=== PATIENT | male | born 1950 | race Caucasian/White ===

== ENCOUNTER 2019-02-12 21:21 | Inpatient (IN) | payer MEDICARE ==
[~2019-02-12] VITALS: Ht 165.1 cm; Wt 54.7 kg
[~2019-02-12 21:21] MED LIST: BENAZEPRIL; DILANTIN; GLIPIZIDE; METOPROLOL; SIMVASTATIN
[2019-02-12] MEDS ORDERED: MORPHINE SULFATE 4 MG/ML CPJ (NOT FOR IM USE) IV STA (22:08)
[2019-02-12] MEDS ORDERED: ONDANSETRON HCL 4MG/2ML INJ IV STA (22:08)
[2019-02-12] MEDS ORDERED: LORAZEPAM 2MG/ML CPJ IV ONE (22:15)
[2019-02-12 23:57] LABS: HEMATOCRIT. 33.5 % (42.0-52.0); HEMOGLOBIN. 11.3 g/dL (14.0-18.0); MEAN CORPUSCULAR HEMOGLOBIN 32.4 pg (28.0-32.0); MEAN CORPUSCULAR VOLUME 95.9 fL (80.0-94.0); MEAN PLATELET VOLUME 7.3 fl (7.4-10.4); PLATELET 336 x1000/uL (130-400); RED BLOOD CELL COUNT 3.49 mill/uL (4.7-6.1); RED CELL DISTRIBUTION WIDTH 14.2 % (11.6-14.6)
[2019-02-13] MEDS ORDERED: ASPIRIN 81MG TABLET PO ONE
[2019-02-13 00:09] LABS: CHLORIDE 103 mEq/L (98-107)
[2019-02-13 00:13] LABS: ETHANOL BLOOD < 10 mg/dL
[2019-02-13 00:18] LABS: PARTIAL THROMBOPLASTIN TIME 22.6 sec (23.4-31.0); PROTHROMBIN TIME 10.1 sec (9.6-11.0)
[2019-02-13 00:39] LABS: CLARITY URINE CLEAR (CLEAR); COLOR URINE YELLOW (YELLOW); KETONES URINE NEGATIVE (NEGATIVE); LEUKOCYTE ESTERASE URINE NEGATIVE (NEGATIVE); NITRITE URINE NEGATIVE (NEGATIVE); OCCULT BLOOD URINE 1+ (NEGATIVE); PROTEIN URINE 3+ (NEGATIVE); SPECIFIC GRAVITY URINE 1.011 (1.005-1.030); UROBILINOGEN URINE 0.2 E.U./dL (0.2-1.0)
[2019-02-13 01:06] LABS: *AMPHETAMINES SCREEN URINE NEGATIVE (NEGATIVE); *BARBITURATES SCREEN URINE NEGATIVE (NEGATIVE); *BENZODIAZEPINES SCREEN URINE NEGATIVE (NEGATIVE); *COCAINE SCREEN URINE NEGATIVE (NEGATIVE); METHADONE URINE SCREEN NEGATIVE (NEGATIVE); OPIATES URINE SCREEN PRESUMTIVE POSITIVE (NEGATIVE)
[2019-02-13 01:07] LABS: CANNABINOID URINE SCREEN NEGATIVE (NEGATIVE); PHENCYCLIDINE URINE SCREEN NEGATIVE (NEGATIVE)
[2019-02-13 01:39] LABS: PLATELET ESTIMATE NORMAL
[2019-02-13 08:30] VITALS: BP 150/55
[2019-02-13 08:55] VITALS: BP 150/55
[2019-02-13] MEDS ORDERED: PENT400T16 PO (09:17)
[2019-02-13] MEDS ORDERED: LISI-186 PO (09:17)
[2019-02-13] MEDS ORDERED: TAMS-11 PO (09:17)
[2019-02-13] MEDS ORDERED: PHEN100C12 PO (09:17)
[2019-02-13] MEDS ORDERED: ASPI-1393 PO (09:17)
[2019-02-13] MEDS ORDERED: DOCU-138 PO (09:17)
[2019-02-13] MEDS ORDERED: DONE5TAB7 PO (09:17)
[2019-02-13] MEDS ORDERED: SERT50TA12 PO (09:17)
[2019-02-13] MEDS ORDERED: METO-539 PO (09:18)
[2019-02-13] MEDS ORDERED: ACETAMINOPHEN 325MG TABLET PO PRN (09:45)
[2019-02-13] MEDS ORDERED: ONDANSETRON 4MG/5ML UDC PO NR (11:00)
[2019-02-13 12:00] VITALS: BP 123/60
[2019-02-13] MEDS: ENOXAPARIN 40MG/0.4ML SYR SUBCUT SCH (12:23)
[2019-02-13 16:00] VITALS: BP 103/56
[2019-02-13] MEDS ORDERED: CLONIDINE 0.1MG TABLET PO PRN (16:45)
[2019-02-13 20:00] VITALS: BP 117/48
[2019-02-13] MEDS ORDERED: PHENYTOIN SODIUM EXTENDED 100MG CAPSULE PO SCH (21:00)
[2019-02-14] VITALS: BP 120/52
[2019-02-14 04:00] VITALS: BP 123/60
[2019-02-14 06:20] LABS: BASOPHILS % 0.8 % (0.0-2.0); EOSINOPHILS % 5.2 % (0.0-5.0); HEMATOCRIT. 34.5 % (42.0-52.0); HEMOGLOBIN. 11.5 g/dL (14.0-18.0); LYMPHOCYTES % 24.8 % (20.0-50.0); MEAN CORPUSCULAR HEMOGLOBIN 31.7 pg (28.0-32.0); MEAN CORPUSCULAR VOLUME 95.6 fL (80.0-94.0); MEAN PLATELET VOLUME 7.4 fl (7.4-10.4); MONOCYTES % 12.2 % (2.0-8.0); PLATELET 366 x1000/uL (130-400); RED BLOOD CELL COUNT 3.61 mill/uL (4.7-6.1); RED CELL DISTRIBUTION WIDTH 14.2 % (11.6-14.6)
[2019-02-14 08:00] VITALS: BP 138/54
[2019-02-14] MEDS ORDERED: PHENYTOIN SODIUM 700 MG in SODIUM CHLORIDE 0.9% 100 ML IV NR (08:30)
[2019-02-14] MEDS ORDERED: CLOPIDOGREL 75MG TABLET PO SCH (09:00)
[2019-02-14] MEDS: ENOXAPARIN 40MG/0.4ML SYR SUBCUT SCH (09:12)
[2019-02-14 12:00] VITALS: BP 120/52
[2019-02-14 14:34] LABS: T4 FREE 0.95 ng/dL (0.76-1.46)
[2019-02-14 14:50] LABS: FOLIC ACID (FOLATE) SERUM 9.3 ng/mL (>5.38)
[2019-02-14 15:56] VITALS: BP 128/60
== END 2019-02-14 16:55 | disposition home health service (06) | DRG 65 ==
LOC: ER 21:21 → 6WST 02-13 00:04 → EDBEDREQ 02-13 00:08 → EDBEDREQTM 02-13 00:08 → ENRESERV 02-13 07:47 → 7WST 02-13 18:58
PROVIDERS: ADMIT Internal Medicine Nephrology; ATTEND Internal Medicine Nephrology
PROC: 4A10X4Z Monitoring of Central Nervous Electrical Activity, External Approach (ICD-10-PCS; principal; 2019-02-14)
DX: I63.81 Other cerebral infarction due to occlusion or stenosis of small artery (principal); I69.351 Hemiplegia and hemiparesis following cerebral infarction affecting right dominant side; R41.4 Neurologic neglect syndrome; I16.1 Hypertensive emergency; G40.909 Epilepsy, unspecified, not intractable, without status epilepticus; I10 Essential (primary) hypertension; E11.9 Type 2 diabetes mellitus without complications; I65.22 Occlusion and stenosis of left carotid artery; Y90.0 Blood alcohol level of less than 20 mg/100 ml; D64.9 Anemia, unspecified; E78.00 Pure hypercholesterolemia, unspecified; F10.21 Alcohol dependence, in remission; F17.210 Nicotine dependence, cigarettes, uncomplicated; Z79.84 Long term (current) use of oral hypoglycemic drugs; Z79.899 Other long term (current) drug therapy; Z71.6 Tobacco abuse counseling
CPT/HCPCS: 36415; 70544; 70553; 71045; 80048; 80061; 80185; 80305; 80320; 81003; 82570; 82607; 82746; 82962; 83036; 83880; 84156; 84439; 84443; 84481; 84484; 92523; 93005; 97163; 97166; 99285; J1165; J1650; J2060; J2270; J2405; J7050; G0480

== ENCOUNTER 2023-01-02 18:55 | Emergency (ER) | payer MEDICARE ==
[~2023-01-02] VITALS: Ht 167.6 cm; Wt 69.0 kg
[~2023-01-02 18:55] MED LIST changes: -BENAZEPRIL; -DILANTIN; +DONE5TAB7 PO; -GLIPIZIDE; +LISI-186 PO; -METOPROLOL; +PHEN100C12 PO; +SERT-422 PO; -SIMVASTATIN; +TAMS-11 PO
[2023-01-02 18:57] VITALS: O2SAT 98
[2023-01-02] MEDS ORDERED: PHENYTOIN SODIUM EXTENDED 100MG CAPSULE PO ONE (21:45)
[2023-01-02 22:41] LABS: BASOPHILS % 0.6 % (0.0-2.0); EOSINOPHILS % 0.5 % (0.0-5.0); HEMATOCRIT. 30.6 % (42.0-52.0); LYMPHOCYTES % 31.9 % (20.0-50.0); MEAN CORPUSCULAR HEMOGLOBIN 31.7 pg (28.0-32.0); MEAN CORPUSCULAR VOLUME 97.1 fL (80.0-94.0); MEAN PLATELET VOLUME 6.1 fl (7.4-10.4); MONOCYTES % 11.1 % (2.0-8.0); NEUTROPHILS % 55.9 % (40.0-76.0); PLATELET 424 x1000/uL (130-400); RED BLOOD CELL COUNT 3.15 mill/uL (4.7-6.1); RED CELL DISTRIBUTION WIDTH 16.1 % (11.6-14.6)
[2023-01-03] MEDS ORDERED: PHENYTOIN SODIUM EXTENDED 100MG CAPSULE PO NR (00:45)
[2023-01-03 13:26] VITALS: BP 125/55; PULSE 75; RESP 17; TEMP 98.6
== END 2023-01-03 13:30 ==
LOC: ER 18:55
DX: R56.9 Unspecified convulsions (principal); E11.9 Type 2 diabetes mellitus without complications; Z86.73 Personal history of transient ischemic attack (TIA), and cerebral infarction without residual deficits
CPT/HCPCS: 36415; 80048; 80185; 82962; 85025; 99283